=== PATIENT | male | born 1945 ===

== ENCOUNTER 2017-08-08 13:17 | Inpatient (IN) | payer MEDICARE, OTHER ==
[2017-08-08] MEDS ORDERED: Sodium Chloride 0.9% 1,000 ML IV ONE (14:07)
[2017-08-08] MEDS ORDERED: Sodium Chloride 0.9% 1,000 ML ONE (14:07)
--- NOTE | 2017-08-08 14:12 | C.PDOC ---
History Of Present Illness 72-year-old male, presents to the emergency department with complaints of syncopal episode. Patient states he was on his way to pain management for routine visit this morning, and developed light headedness while getting out of the car this morning. Patient states he walked into the building and sat down, after which he states he may have experiencing a syncopal episode. Patient did not have any evidence of seizure. He was sent to ED for evaluation of low blood pressure. States he feels light headed when he stands. Patient is on Morphine and Percocet at home which he is taking as prescribed. He notes loss of appetite for the past four months, but does not know why. No other complaints at this time. Time Seen by Provider: 08/08/17 14:02 Chief Complaint (Nursing): Dizziness/Lightheaded History Per: Patient History/Exam Limitations: no limitations Past Medical History Reviewed: Historical Data, Nursing Documentation, Vital Signs Vital Signs: Last Vital Signs Temp 97.8 F 08/08/17 13:50 Pulse 90 08/08/17 15:45 Resp 16 08/08/17 15:45 BP 94/60 L 08/08/17 15:45 Pulse Ox 99 08/08/17 17:11 - Medical History PMH: Back Problems, HTN Surgical History: CABG (2005) Family History: States: No Known Family Hx - Social History Hx Alcohol Use: No Hx Substance Use: No Review Of Systems Except As Marked, All Systems Reviewed And Found Negative. Constitutional: Negative for: Fever, Chills Cardiovascular: Negative for: Chest Pain, Palpitations Respiratory: Negative for: Shortness of Breath Gastrointestinal: Negative for: Nausea, Vomiting Musculoskeletal: Negative for: Back Pain Neurological: Positive for: Dizziness. Negative for: Weakness, Numbness, Headache Physical Exam - Physical Exam Appears: Well, Non-toxic, No Acute Distress Skin: Warm, Dry, No Diaphoretic, No Rash Head: Normacephalic Eye(s): bilateral: PERRL, EOMI Nose: Normal Oral Mucosa: Moist Lips: Normal Appearing Neck: Normal ROM, Supple Chest: Symmetrical Cardiovascular: Rhythm Regular, No Murmur Respiratory: Normal Breath Sounds, No Accessory Muscle Use Gastrointestinal/Abdominal: Soft, No Tenderness Extremity: Normal ROM, No Deformity, No Swelling Neurological/Psych: Oriented x3, Normal Speech, Other (No focal deficit) ED Course And Treatment - Laboratory Results Result Diagrams: 08/08/17 14:16 08/08/17 14:16 Lab Interpretation: Abnormal (BUN 29, Cr 1.8) ECG: Interpreted By Me ECG Rhythm: Sinus Rhythm (with left axis deviation) ECG Interpretation: No Acute Changes O2 Sat by Pulse Oximetry: 99 (RA) Pulse Ox Interpretation: Normal Progress Note: CT Head, EKG, Labs, and UA ordered and reviewed. Reevaluation Time: 17:10 Reassessment Condition: Unchanged (BP remains low with HR 90s after 1 liter normal saline. Patient is asymptomatic at rest.) - Physician Consult Information Time Consulting Physician Contacted: 17:10 Physician Contacted: Jonel Magana Outcome Of Conversation: Patient to be admitted for IV fluids and rehydration. Disposition - Disposition Disposition: HOSPITALIZED Disposition Time: 17:26 Condition: FAIR - POA Present On Arrival: None - Clinical Impression Clinical Impression: Dizziness, Hypotension, Dehydration - Scribe Statement The provider has reviewed the documentation as recorded by the Scribe (Maru Page) All medical record entries made by the Scribe were at my direction and personally dictated by me. I have reviewed the chart and agree that the record accurately reflects my personal performance of the history, physical exam, medical decision making, and the department course for this patient. I have also personally directed, reviewed, and agree with the discharge instructions and disposition.
[2017-08-08 14:20] LABS: BASO % 0.5 % (0.0-2.0); EOS # 0.1 K/uL (0.0-0.7); HEMOGLOBIN 13.8 g/dL (12.0-18.0); LYMPH # 1.1 K/uL (1.0-4.3); LYMPH % 12.2 % (20.0-40.0); MEAN CELL VOLUME 95.4 fL (80.0-94.0); MEAN CORPUSCULAR HEMOGLOBIN 33.2 pg (27.0-31.0); MEAN CORPUSCULAR HGB CONC 34.7 g/dL (33.0-37.0); MEAN PLATELET VOLUME 7.2 fL (7.2-11.7); MONO # 0.5 K/uL (0.0-0.8); MONO % 5.9 % (0.0-10.0); NEUT # 7.1 K/uL (1.8-7.0); NEUT % 80.4 % (50.0-75.0); RBC 4.15 Mil/uL (4.40-5.90); RED CELL DISTRIBUTION WIDTH 13.7 % (11.5-14.5); WHITE BLOOD COUNT 8.8 K/uL (4.8-10.8)
[2017-08-08 14:33] LABS: ALB/GLOB RATIO 1.3 (1.0-2.1); ALBUMIN 4.3 g/dL (3.5-5.0)
--- NOTE | 2017-08-08 15:30 | CT ---
PROCEDURE: CT HEAD WITHOUT CONTRAST. HISTORY: R/O Bleed COMPARISON: None available. TECHNIQUE: Axial computed tomography images were obtained through the head/brain without intravenous contrast. Radiation dose: Total exam DLP = 850.72 mGy-cm. This CT exam was performed using one or more of the following dose reduction techniques: Automated exposure control, adjustment of the mA and/or kV according to patient size, and/or use of iterative reconstruction technique. FINDINGS: HEMORRHAGE: No intracranial hemorrhage. BRAIN: No mass effect or edema. Intracranial atherosclerosis. Scattered periventricular and subcortical white matter hypodensities, which are nonspecific, but often seen with chronic microvascular ischemic disease. Please note that MRI with diffusion imaging is more sensitive in the detection of acute ischemic event. VENTRICLES: No hydrocephalus. CALVARIUM: Unremarkable. PARANASAL SINUSES: Mild mucosal thickening of the ethmoid air cells. The remainder of the limited visualized paranasal sinuses appear clear. MASTOID AIR CELLS: Unremarkable as visualized. No inflammatory changes. OTHER FINDINGS: None. IMPRESSION: No acute intracranial pathology identified. Findings as above.
[2017-08-08 16:27] LABS: URINE BACTERIA RARE (<OCC); URINE BILIRUBIN NEGATIVE (NEGATIVE); URINE BLOOD NEGATIVE (NEGATIVE); URINE CLARITY Hazy (Clear); URINE COLOR Yellow (YELLOW); URINE GLUCOSE (UA) NORMAL (Normal); URINE HYALINE CAST 0-2 /lpf (0-2); URINE LEUKOCYTE ESTERASE NEG Leu/uL (Negative); URINE NITRATE NEGATIVE (NEGATIVE); URINE PROTEIN NEGATIVE (NEGATIVE); URINE UROBILINOGEN NORMAL mg/dL (0.2-1.0)
[2017-08-08] MEDS: Sodium Chloride 0.9% 1,000 ML IV SCH (18:50)
[2017-08-08] MEDS: Morphine 15 mg SR Tab PO SCH (22:20)
--- NOTE | 2017-08-08 22:59 | CP.PCM.HP ---
History of Present Illness - History of Present Illness History of Present Illness: Chief Complaint : Dizziness/Lightheaded/ generalized weakness HPI: 72-year-old male with PMH significant for HTN, CAD, s/p CABG 6 years ago, HTn, Hyperlipidemia, back pain problems, presents to the emergency department with complaints of syncopal episode. Patient states he was on his way to pain management for routine visit this morning, and developed light headedness while getting out of the car this morning. Patient states he walked into the building and sat down, after which he states he may have experiencing a syncopal episode. Patient did not have any evidence of seizure. He was sent to ED for evaluation of low blood pressure. States he feels light headed when he stands. Patient is on Morphine and Percocet at home which he is taking as prescribed. He notes loss of appetite for the past four months, but does not know why. No other complaints at this time. He gets diaphoretic and dizzy but denies any chest pain Present on Admission - Present on Admission Any Indicators Present on Admission: Yes Review of Systems - Review of Systems Systems not reviewed;Unavailable: Acuity of Condition - Constitutional Constitutional: Fatigue, Lethargy, Malaise - EENT Eyes: absent: As Per HPI, Blind Spots, Blurred Vision, Change in Vision, Decreased Night Vision, Diplopia, Discharge, Dry Eye, Exophthalmos, Floaters, Irritation, Itchy Eyes, Loss of Peripheral Vision, Pain, Photophobia, Requires Corrective Lenses, Sees Flashes, Spots in Vision, Tunnel Vision, Other Visual Disturbances, Loss of Vision, Other Nose/Mouth/Throat: absent: As Per HPI, Epistaxis, Nasal Congestion, Nasal Discharge, Nasal Obstruction, Nasal Trauma, Nose Pain, Post Nasal Drip, Sinus Pain, Sinus Pressure, Bleeding Gums, Change in Voice, Dental Pain, Dry Mouth, Dysphagia, Halitosis, Hoarsness, Lip Swelling, Mouth Lesions, Mouth Pain, Odynophagia, Sore Throat, Throat Swelling, Tongue Swelling, Facial Pain, Neck Pain, Neck Mass, Other - Cardiovascular Cardiovascular: Diaphoresis, Palpitations, Rapid Heart Rate - Respiratory Respiratory: absent: As Per HPI, Cough, Dyspnea, Hemoptysis, Dyspnea on Exertion , Wheezing, Snoring, Stridor, Pain on Inspiration, Chest Congestion, Excessive Mucous Production, Change in Mucous Color, Pain with Coughing, Other - Gastrointestinal Gastrointestinal: absent: As Per HPI, Abdominal Pain, Belching, Bloating, Change in Bowel Habits, Change in Stool Character, Coffee Ground Emesis, Constipation, Cramping, Diarrhea, Dyspepsia, Dysphagia, Early Satiety, Excessive Flatus, Fecal Incontinence, Heartburn, Hematemesis, Hematochezia, Loose Stools, Melena, Nausea, Odynophagia, Temesmus, Vomiting, Other - Genitourinary Genitourinary: absent: As Per HPI, Change in Urinary Stream, Difficulty Urinating, Dysuria, Flank Pain, Hematuria, Pyuria, Nocturia, Urinary Incontinence, Urinary Frequency, Urinary Hesitance, Urinary Urgency, Voiding Freq/Small Amts, Freq UTI, Hx Renal/Bladder Calculi, Hx /Renal Surgery, Bladder Distension, Other - Musculoskeletal Musculoskeletal: Back Pain, Radiating Pain into Limb, Stiffness - Neurological Neurological: Abnormal Movements, Burning Sensations, Dizziness, Numbness, Syncope, Weakness Past Patient History - Past Medical History & Family History Past Medical History?: Yes - Past Social History Smoking Status: Unknown If Ever Smoked - CARDIAC Hx Hypertension: Yes - MUSCULOSKELETAL/RHEUMATOLOGICAL Hx Herniated Disk: Yes - PSYCHIATRIC Hx Substance Use: No - SURGICAL HISTORY Hx Coronary Artery Bypass Graft: Yes (2005) - ANESTHESIA Hx Anesthesia: Yes Meds Allergies/Adverse Reactions: Allergies Allergy/AdvReac Type Severity Reaction Status Date / Time No Known Allergies Allergy Unverified 08/08/17 13:54 Physical Exam - Constitutional Appears: No Acute Distress - Head Exam Head Exam: ATRAUMATIC, NORMAL INSPECTION, NORMOCEPHALIC - Eye Exam Eye Exam: EOMI, Normal appearance, PERRL Pupil Exam: NORMAL ACCOMODATION, PERRL - Respiratory Exam Respiratory Exam: Clear to Auscultation Bilateral, NORMAL BREATHING PATTERN - Cardiovascular Exam Cardiovascular Exam: REGULAR RHYTHM - GI/Abdominal Exam GI & Abdominal Exam: Normal Bowel Sounds, Soft. absent: Tenderness - Neurological Exam Neurological exam: Alert, CN II-XII Intact, Normal Gait, Oriented x3, Reflexes Normal - Psychiatric Exam Psychiatric exam: Normal Affect, Normal Mood Results - Vital Signs Recent Vital Signs: Last Vital Signs Temp 97.8 F 08/08/17 13:50 Pulse 86 08/08/17 19:53 Resp 12 08/08/17 19:53 BP 91/61 L 08/08/17 19:53 Pulse Ox 99 08/08/17 20:58 - Labs Result Diagrams: 08/08/17 14:16 08/08/17 14:16 Labs: Laboratory Results - last 24 hr 08/08/17 08/08/17 08/08/17 14:16 14:16 14:26 WBC 8.8 RBC 4.15 L Hgb 13.8 Hct 39.6 MCV 95.4 H MCH 33.2 H MCHC 34.7 RDW 13.7 Plt Count 388 MPV 7.2 Neut % (Auto) 80.4 H Lymph % (Auto) 12.2 L [place] % (Auto) 5.9 Eos % (Auto) 1.0 Baso % (Auto) 0.5 Neut # (Auto) 7.1 H Lymph # (Auto) 1.1 [place] # (Auto) 0.5 Eos # (Auto) 0.1 Baso # (Auto) 0.0 Sodium 138 Potassium 4.9 Chloride 102 Carbon Dioxide 25 Anion Gap 15 BUN 29 H Creatinine 1.8 H Est GFR ( Amer) 45 Est GFR (Non-Af Amer) 37 POC Glucose (mg/dL) 114 H Random Glucose 128 H Calcium 10.0 Total Bilirubin 0.6 AST 28 ALT 24 Alkaline Phosphatase 91 Total Protein 7.5 Albumin 4.3 Globulin 3.2 Albumin/Globulin Ratio 1.3 Urine Color Urine Clarity Urine pH Ur Specific [place] Urine Protein Urine Glucose (UA) Urine Ketones Urine Blood Urine Nitrate Urine Bilirubin Urine Urobilinogen Ur Leukocyte Esterase Urine WBC (Auto) Urine RBC (Auto) Ur Transition Epith Cell Urine Bacteria Hyaline Casts 08/08/17 16:17 WBC RBC Hgb Hct MCV MCH MCHC RDW Plt Count MPV Neut % (Auto) Lymph % (Auto) [place] % (Auto) Eos % (Auto) Baso % (Auto) Neut # (Auto) Lymph # (Auto) [place] # (Auto) Eos # (Auto) Baso # (Auto) Sodium Potassium Chloride Carbon Dioxide Anion Gap BUN Creatinine Est GFR ( Amer) Est GFR (Non-Af Amer) POC Glucose (mg/dL) Random Glucose Calcium Total Bilirubin AST ALT Alkaline Phosphatase Total Protein Albumin Globulin Albumin/Globulin Ratio Urine Color Yellow Urine Clarity Hazy Urine pH 6.0 Ur Specific [place] 1.013 Urine Protein Negative Urine Glucose (UA) Normal Urine Ketones Negative Urine Blood Negative Urine Nitrate Negative Urine Bilirubin Negative Urine Urobilinogen Normal Ur Leukocyte Esterase Neg Urine WBC (Auto) 1 Urine RBC (Auto) 1 Ur Transition Epith Cell < 1 Urine Bacteria Rare Hyaline Casts 0-2 Assessment & Plan (1) Dehydration Status: Acute (2) Dizziness Assessment and Plan: could be due to hypotension due to antihypertensive medications Status: Acute (3) Hypotension Status: Acute (4) Back pain Status: Acute
[2017-08-08 23:08] VITALS: RESP 20
[2017-08-09] MEDS: Sodium Chloride 0.9% 1,000 ML IV SCH ×2 (05:30→14:02)
--- NOTE | 2017-08-09 09:33 | RAD ---
Chest x-ray two views History: Pneumonia. Comparison: None available. Findings: Diffuse increased interstitial lung markings. Small nodular density at the right costophrenic angle may represent confluence of shadows with ribs and vessels. Tortuous ectatic aorta. Status post median sternotomy and CABG. Heart size within normal limits. Degenerative changes in the spine and shoulders. Impression: Diffuse increased interstitial lung markings. Small nodular density at the right costophrenic angle may represent confluence of shadows with ribs and vessels. Tortuous ectatic aorta. Status post median sternotomy and CABG.
[2017-08-09] MEDS ORDERED: Ergocalciferol 50,000 Intl Units Cap PO SCH (10:00)
[2017-08-09] MEDS ORDERED: Pneumococcal 23-Valent Vaccine IM ONE (10:00)
[2017-08-09] MEDS ORDERED: Influenza Vaccine 60 mcg/0.5 mL SYR (4YR UP) IM ONE (10:00)
[2017-08-09] MEDS: Morphine 15 mg SR Tab PO SCH ×2 (10:05→21:31)
[2017-08-09 11:48] LABS: BASO % 0.3 % (0.0-2.0); EOS # 0.1 K/uL (0.0-0.7); EOS % 1.2 % (0.0-4.0); LYMPH # 1.3 K/uL (1.0-4.3); LYMPH % 22.4 % (20.0-40.0); MEAN CELL VOLUME 95.5 fL (80.0-94.0); MEAN CORPUSCULAR HEMOGLOBIN 32.9 pg (27.0-31.0); MEAN CORPUSCULAR HGB CONC 34.4 g/dL (33.0-37.0); MEAN PLATELET VOLUME 7.1 fL (7.2-11.7); MONO # 0.5 K/uL (0.0-0.8); MONO % 8.4 % (0.0-10.0); NEUT # 3.8 K/uL (1.8-7.0); NEUT % 67.7 % (50.0-75.0); NRBC % 0.1 % (0.0-2.0); RBC 3.29 Mil/uL (4.40-5.90); RED CELL DISTRIBUTION WIDTH 13.7 % (11.5-14.5); WHITE BLOOD COUNT 5.7 K/uL (4.8-10.8)
[2017-08-09 11:52] LABS: HEMOGLOBIN 10.8 g/dL (12.0-18.0)
[2017-08-09 11:56] LABS: BLOOD UREA NITROGEN 23 mg/dL (9-20); CALCIUM 8.2 mg/dl (8.6-10.4); GFR AFRICAN-AMERICAN > 60; GFR NON-AFRICAN AMERICAN > 60
[2017-08-09] MEDS: Moxifloxacin IV 400mg/250ml NS 400 MG/250 ML BAG IVPB SCH (14:02)
[2017-08-09] MEDS ORDERED: Enoxaparin 40 mg Syringe SC SCH (15:00)
[2017-08-09] MEDS: Albuterol-Ipratrop 3 mg / 0.5 (3 ml) UD INH SCH (18:20)
--- NOTE | 2017-08-09 19:53 | CP.PCM.PN ---
Subjective - Date & Time of Evaluation Date of Evaluation: 08/09/17 Time of Evaluation: 18:00 - Subjective Subjective: pt seen and examined today, c/o coughing, congestion, B.P is low desoute Iv fluids, CXR shows infiltrate pt has atypical pnemonia, on avelox and Iv fluids Objective - Vital Signs/Intake and Output Vital Signs (last 24 hours): Temp Pulse Resp BP Pulse Ox 98.2 F 84 20 99/63 L 97 08/09/17 15:00 08/09/17 15:00 08/09/17 15:00 08/09/17 15:00 08/09/17 15:00 Intake and Output: 08/09/17 08/10/17 18:59 06:59 Intake Total 1350 Balance 1350 - Medications Medications: Current Medications Albuterol/Ipratropium (Duoneb 3 Mg/0.5 Mg (3 Ml) Ud) 3 ml INH RQ6 [facility] Carvedilol (Coreg) 3.125 mg PO Q12 [facility] Last Admin: 08/09/17 10:06 Dose: 3.125 mg Clopidogrel Bisulfate (Plavix) 75 mg PO DAILY [facility] Last Admin: 08/09/17 10:07 Dose: 75 mg Cyclobenzaprine HCl (Flexeril) 10 mg PO DAILY [facility] Last Admin: 08/09/17 10:07 Dose: 10 mg Ergocalciferol (Drisdol 50,000 Intl Units Cap) 1 cap PO QWK [facility] Last Admin: 08/09/17 10:05 Dose: 1 cap Famotidine (Pepcid) 20 mg PO DAILY [facility] Last Admin: 08/09/17 10:06 Dose: 20 mg Finasteride (Proscar) 5 mg PO DAILY [facility] Last Admin: 08/09/17 10:06 Dose: 5 mg Guaifenesin (Robitussin) 200 mg PO Q4H PRN PRN Reason: Cough and congestion Heparin Sodium (Porcine) (Heparin) 5,000 units SC Q12 [facility] Last Admin: 08/09/17 10:06 Dose: 5,000 units Sodium Chloride (Sodium Chloride 0.9%) 1,000 mls @ 100 mls/hr IV .Q10H [facility] Last Admin: 08/09/17 14:02 Dose: Not Given Moxifloxacin HCl (Avelox Iv 400mg/250ml Ns) 400 mg in 250 mls @ 167 mls/hr IVPB Q24H [facility] Last Admin: 08/09/17 14:02 Dose: 167 mls/hr Morphine Sulfate (Morphine Extended Release Tab) 15 mg PO Q12 [facility] Last Admin: 08/09/17 10:05 Dose: 15 mg Rosuvastatin Calcium (Crestor) 20 mg PO HS [facility] Last Admin: 08/08/17 22:20 Dose: 20 mg - Labs Labs: 08/09/17 11:31 08/09/17 11:31 - Constitutional Appears: No Acute Distress - Head Exam Head Exam: ATRAUMATIC, NORMAL INSPECTION, NORMOCEPHALIC - Eye Exam Eye Exam: EOMI, Normal appearance, PERRL Pupil Exam: NORMAL ACCOMODATION, PERRL - Respiratory Exam Respiratory Exam: Clear to Ausculation Bilateral, NORMAL BREATHING PATTERN - Cardiovascular Exam Cardiovascular Exam: REGULAR RHYTHM, +S1, +S2. absent: Murmur - GI/Abdominal Exam GI & Abdominal Exam: Soft, Normal Bowel Sounds. absent: Tenderness - Extremities Exam Extremities Exam: Full ROM, Normal Capillary Refill, Normal Inspection. absent : Joint Swelling, Pedal Edema - Neurological Exam Neurological Exam: Alert, Awake, CN II-XII Intact, Normal Gait, Oriented x3 Assessment and Plan (1) Dehydration Status: Acute (2) Dizziness Status: Acute (3) Hypotension Status: Acute (4) Back pain Status: Acute
[2017-08-10] MEDS: Sodium Chloride 0.9% 1,000 ML IV SCH ×3 (00:15→10:15)
[2017-08-10] MEDS: Albuterol-Ipratrop 3 mg / 0.5 (3 ml) UD INH SCH ×4 (03:01→19:15)
[2017-08-10] MEDS: guaiFENesin 200 mg/10 ml Syrup UD PO PRN (09:12)
[2017-08-10] MEDS: Morphine 15 mg SR Tab PO SCH ×2 (09:15→21:38)
[2017-08-10] MEDS ORDERED: Pantoprazole 40 mg EC Tab PO STA (09:38)
[2017-08-10] MEDS ORDERED: Pantoprazole 40 mg EC Tab PO ONE (11:30)
[2017-08-10 11:42] LABS: HEMOGLOBIN 10.7 g/dL (12.0-18.0); MEAN CELL VOLUME 95.1 fL (80.0-94.0); MEAN CORPUSCULAR HEMOGLOBIN 33.2 pg (27.0-31.0); MEAN CORPUSCULAR HGB CONC 34.9 g/dL (33.0-37.0); MEAN PLATELET VOLUME 7.4 fL (7.2-11.7); RBC 3.24 Mil/uL (4.40-5.90); RED CELL DISTRIBUTION WIDTH 13.7 % (11.5-14.5); WHITE BLOOD COUNT 5.7 K/uL (4.8-10.8)
[2017-08-10 11:59] LABS: IRON 27 ug/dL (49-181)
[2017-08-10 12:01] LABS: BLOOD UREA NITROGEN 18 mg/dL (9-20); CALCIUM 8.8 mg/dl (8.6-10.4); GFR AFRICAN-AMERICAN > 60; GFR NON-AFRICAN AMERICAN 54
[2017-08-10 12:09] LABS: % IRON SATURATION 10 (20-55); TOTAL IRON BINDING CAPACITY 272 ug/dL (250-450)
[2017-08-10] MEDS: Moxifloxacin IV 400mg/250ml NS 400 MG/250 ML BAG IVPB SCH (13:00)
--- NOTE | 2017-08-10 13:22 | CARD ---
APPROVED REPORT EKG Measurement Heart [id number] <Conclusion> Normal sinus rhythm Left axis deviation Abnormal ECG
--- NOTE | 2017-08-10 16:02 | CP.PCM.CON ---
History of Present Illness - History of Present Illness History of Present Illness: Reason for consultation: history of COPD and cough 72-year-old male with history off COPD, coronary artery disease status post CABG presented to emergency department with syncopal episode. Patient also complaining off slight cough and on and off shortness of breath. Patient states that he uses Advair and nebulizer treatment. Patient has long history of smoking and quit many years ago. Patient states dizziness/lightheadedness is better now Review of Systems - Review of Systems All systems: reviewed and no additional remarkable complaints except (shortness of breath and cough) Past Patient History - Past Medical History & Family History Past Medical History?: Yes - Past Social History Smoking Status: Unknown If Ever Smoked - CARDIAC Hx Hypertension: Yes - MUSCULOSKELETAL/RHEUMATOLOGICAL Hx Herniated Disk: Yes - PSYCHIATRIC Hx Substance Use: No - SURGICAL HISTORY Hx Coronary Artery Bypass Graft: Yes (2005) - ANESTHESIA Hx Anesthesia: Yes Meds Allergies/Adverse Reactions: Allergies Allergy/AdvReac Type Severity Reaction Status Date / Time No Known Allergies Allergy Unverified 08/08/17 13:54 - Medications Medications: Current Medications Albuterol/Ipratropium (Duoneb 3 Mg/0.5 Mg (3 Ml) Ud) 3 ml INH RQ6 [facility] Last Admin: 08/10/17 13:52 Dose: 3 ml Carvedilol (Coreg) 3.125 mg PO Q12 [facility] Last Admin: 08/10/17 10:00 Dose: Not Given Clopidogrel Bisulfate (Plavix) 75 mg PO DAILY [facility] Last Admin: 08/10/17 09:12 Dose: 75 mg Cyclobenzaprine HCl (Flexeril) 10 mg PO DAILY [facility] Last Admin: 08/10/17 09:13 Dose: 10 mg Ergocalciferol (Drisdol 50,000 Intl Units Cap) 1 cap PO QWK [facility] Last Admin: 08/09/17 10:05 Dose: 1 cap Famotidine (Pepcid) 20 mg PO BID [facility] Last Admin: 08/10/17 10:20 Dose: 20 mg Finasteride (Proscar) 5 mg PO DAILY [facility] Last Admin: 08/10/17 09:11 Dose: 5 mg Guaifenesin (Robitussin) 200 mg PO Q4H PRN PRN Reason: Cough and congestion Last Admin: 08/10/17 09:12 Dose: 200 mg Heparin Sodium (Porcine) (Heparin) 5,000 units SC Q12 [facility] Last Admin: 08/10/17 09:13 Dose: 5,000 units Sodium Chloride (Sodium Chloride 0.9%) 1,000 mls @ 100 mls/hr IV .Q10H [facility] Last Admin: 08/10/17 10:15 Dose: Not Given Moxifloxacin HCl (Avelox Iv 400mg/250ml Ns) 400 mg in 250 mls @ 167 mls/hr IVPB Q24H [facility] Last Admin: 08/10/17 13:00 Dose: 167 mls/hr Morphine Sulfate (Morphine Extended Release Tab) 15 mg PO Q12 [facility] Last Admin: 08/10/17 09:15 Dose: 15 mg Rosuvastatin Calcium (Crestor) 20 mg PO HS [facility] Last Admin: 08/09/17 21:28 Dose: 20 mg Physical Exam - Head Exam Head Exam: ATRAUMATIC, NORMOCEPHALIC - ENT Exam ENT Exam: Mucous Membranes Moist - Neck Exam Neck exam: Positive for: Normal Inspection - Respiratory Exam Respiratory Exam: Rhonchi, Wheezes - Cardiovascular Exam Cardiovascular Exam: REGULAR RHYTHM - GI/Abdominal Exam GI & Abdominal Exam: Normal Bowel Sounds, Soft Results - Vital Signs Recent Vital Signs: Last Vital Signs Temp 98.2 F 08/09/17 15:00 Pulse 84 08/09/17 15:00 Resp 20 08/09/17 15:00 BP 99/61 L 08/09/17 21:35 Pulse Ox 97 08/09/17 15:00 - Labs Result Diagrams: 08/10/17 11:30 08/10/17 11:30 Labs: Laboratory Results - last 24 hr 08/10/17 08/10/17 08/10/17 11:30 11:30 11:30 WBC 5.7 RBC 3.24 L Hgb 10.7 L Hct 30.8 L MCV 95.1 H MCH 33.2 H MCHC 34.9 RDW 13.7 Plt Count 274 MPV 7.4 Sodium 138 Potassium 4.7 Chloride 107 Carbon Dioxide 25 Anion Gap 11 BUN 18 Creatinine 1.3 Est GFR ( Amer) > 60 Est GFR (Non-Af Amer) 54 Random Glucose 91 Calcium 8.8 Iron 27 L TIBC 272 % Saturation 10 L Assessment & Plan (1) COPD (chronic obstructive pulmonary disease) Status: Acute Comment: continue nebulizer treatment. Add Advair. Dizziness workup (2) Dizziness Status: Acute
[2017-08-10] MEDS: Fluticasone-Salmeterol 250-50mcg Diskus INH SCH (19:15)
[2017-08-10] MEDS ORDERED: MethylPREDNISolone 40 mg Vial IVP STA ×2 (19:44→20:53)
--- NOTE | 2017-08-10 23:27 | CP.PCM.PN ---
Subjective - Date & Time of Evaluation Date of Evaluation: 08/10/17 Time of Evaluation: 18:00 - Subjective Subjective: Pt seen and examined at bedside, pt blood pressure is more stable, he is coughing and wheezing Objective - Vital Signs/Intake and Output Vital Signs (last 24 hours): Temp Pulse Resp BP Pulse Ox 98.7 F 84 20 115/71 96 08/10/17 16:43 08/10/17 16:43 08/10/17 16:43 08/10/17 16:43 08/10/17 17:07 Intake and Output: 08/10/17 08/11/17 18:59 06:59 Intake Total 1000 Output Total 650 Balance 350 - Medications Medications: Current Medications Albuterol/Ipratropium (Duoneb 3 Mg/0.5 Mg (3 Ml) Ud) 3 ml INH RQ6 [facility] Last Admin: 08/10/17 19:15 Dose: 3 ml Carvedilol (Coreg) 3.125 mg PO Q12 [facility] Last Admin: 08/10/17 21:10 Dose: 3.125 mg Clopidogrel Bisulfate (Plavix) 75 mg PO DAILY [facility] Last Admin: 08/10/17 09:12 Dose: 75 mg Cyclobenzaprine HCl (Flexeril) 10 mg PO DAILY [facility] Last Admin: 08/10/17 09:13 Dose: 10 mg Ergocalciferol (Drisdol 50,000 Intl Units Cap) 1 cap PO QWK [facility] Last Admin: 08/09/17 10:05 Dose: 1 cap Famotidine (Pepcid) 20 mg PO BID [facility] Last Admin: 08/10/17 18:23 Dose: 20 mg Finasteride (Proscar) 5 mg PO DAILY [facility] Last Admin: 08/10/17 09:11 Dose: 5 mg Guaifenesin (Robitussin) 200 mg PO Q4H PRN PRN Reason: Cough and congestion Last Admin: 08/10/17 09:12 Dose: 200 mg Heparin Sodium (Porcine) (Heparin) 5,000 units SC Q12 [facility] Last Admin: 08/10/17 09:13 Dose: 5,000 units Moxifloxacin HCl (Avelox Iv 400mg/250ml Ns) 400 mg in 250 mls @ 167 mls/hr IVPB Q24H [facility] Last Admin: 08/10/17 13:00 Dose: 167 mls/hr Morphine Sulfate (Morphine Extended Release Tab) 15 mg PO Q12 [facility] Last Admin: 08/10/17 21:38 Dose: 15 mg Rosuvastatin Calcium (Crestor) 20 mg PO HS [facility] Last Admin: 08/10/17 21:09 Dose: 20 mg Fluticasone/Salmeterol (Advair Diskus 250/50) 1 puff INH RQ12 [facility] Last Admin: 08/10/17 19:15 Dose: Not Given - Labs Labs: 08/10/17 11:30 08/10/17 11:30 - Constitutional Appears: No Acute Distress - Head Exam Head Exam: ATRAUMATIC, NORMAL INSPECTION, NORMOCEPHALIC - Eye Exam Eye Exam: EOMI, Normal appearance, PERRL Pupil Exam: NORMAL ACCOMODATION, PERRL - Respiratory Exam Respiratory Exam: Decreased Breath Sounds, Rales, Rhonchi - Cardiovascular Exam Cardiovascular Exam: REGULAR RHYTHM, +S1, +S2. absent: Murmur - GI/Abdominal Exam GI & Abdominal Exam: Soft, Normal Bowel Sounds. absent: Tenderness Assessment and Plan (1) Dehydration Status: Acute (2) Dizziness Status: Acute (3) Hypotension Status: Acute (4) Back pain Status: Acute
[2017-08-11] MEDS: Albuterol-Ipratrop 3 mg / 0.5 (3 ml) UD INH SCH ×3 (02:59→13:31)
[2017-08-11 08:00] LABS: MEAN CELL VOLUME 95.6 fL (80.0-94.0); MEAN CORPUSCULAR HEMOGLOBIN 33.3 pg (27.0-31.0); MEAN CORPUSCULAR HGB CONC 34.8 g/dL (33.0-37.0); MEAN PLATELET VOLUME 7.4 fL (7.2-11.7); RBC 3.61 Mil/uL (4.40-5.90); RED CELL DISTRIBUTION WIDTH 13.4 % (11.5-14.5); WHITE BLOOD COUNT 6.4 K/uL (4.8-10.8)
[2017-08-11 08:10] LABS: BLOOD UREA NITROGEN 16 mg/dL (9-20); CALCIUM 8.8 mg/dl (8.6-10.4); GFR AFRICAN-AMERICAN > 60; GFR NON-AFRICAN AMERICAN 60
[2017-08-11] MEDS: Fluticasone-Salmeterol 250-50mcg Diskus INH SCH (08:59)
[2017-08-11] MEDS: guaiFENesin 200 mg/10 ml Syrup UD PO PRN (09:16)
[2017-08-11] MEDS: Morphine 15 mg SR Tab PO SCH (09:19)
[2017-08-11 09:25] VITALS: BP 104/67; PULSE 99; TEMP 98.2; O2SAT 95
--- NOTE | 2017-08-11 13:33 | CP.PCM.PN ---
Subjective - Date & Time of Evaluation Date of Evaluation: 08/11/17 Time of Evaluation: 09:20 - Subjective Subjective: patient seen and examined Cough and wheezing much improved Afebrile Being discharged home Follow up in the office Continue Advair and nebulizer treatment Pulmonary function test Objective - Vital Signs/Intake and Output Vital Signs (last 24 hours): Temp Pulse Resp BP Pulse Ox 98.2 F 99 H 20 104/67 95 08/11/17 09:24 08/11/17 09:24 08/11/17 09:24 08/11/17 09:24 08/11/17 09:24 Intake and Output: 08/11/17 08/11/17 06:59 18:59 Intake Total 120 Balance 120 - Medications Medications: Current Medications Albuterol/Ipratropium (Duoneb 3 Mg/0.5 Mg (3 Ml) Ud) 3 ml INH RQ6 [facility] Last Admin: 08/11/17 13:31 Dose: 3 ml Carvedilol (Coreg) 3.125 mg PO Q12 [facility] Last Admin: 08/11/17 09:17 Dose: 3.125 mg Clopidogrel Bisulfate (Plavix) 75 mg PO DAILY [facility] Last Admin: 08/11/17 09:20 Dose: 75 mg Cyclobenzaprine HCl (Flexeril) 10 mg PO DAILY [facility] Last Admin: 08/11/17 09:20 Dose: 10 mg Ergocalciferol (Drisdol 50,000 Intl Units Cap) 1 cap PO QWK [facility] Last Admin: 08/09/17 10:05 Dose: 1 cap Famotidine (Pepcid) 20 mg PO BID [facility] Last Admin: 08/11/17 09:17 Dose: 20 mg Finasteride (Proscar) 5 mg PO DAILY [facility] Last Admin: 08/11/17 09:21 Dose: 5 mg Guaifenesin (Robitussin) 200 mg PO Q4H PRN PRN Reason: Cough and congestion Last Admin: 08/11/17 09:16 Dose: 200 mg Heparin Sodium (Porcine) (Heparin) 5,000 units SC Q12 [facility] Last Admin: 08/10/17 09:13 Dose: 5,000 units Moxifloxacin HCl (Avelox Iv 400mg/250ml Ns) 400 mg in 250 mls @ 167 mls/hr IVPB Q24H [facility] Last Admin: 08/10/17 13:00 Dose: 167 mls/hr Morphine Sulfate (Morphine Extended Release Tab) 15 mg PO Q12 [facility] Last Admin: 08/11/17 09:19 Dose: 15 mg Rosuvastatin Calcium (Crestor) 20 mg PO HS [facility] Last Admin: 08/10/17 21:09 Dose: 20 mg Fluticasone/Salmeterol (Advair Diskus 250/50) 1 puff INH RQ12 [facility] Last Admin: 08/11/17 08:59 Dose: 1 puff - Labs Labs: 08/11/17 07:34 08/11/17 07:34 Assessment and Plan (1) COPD (chronic obstructive pulmonary disease) Status: Acute (2) Dizziness Status: Acute
--- NOTE | 2017-08-11 16:08 | CP.PCM.PN ---
Subjective - Date & Time of Evaluation Date of Evaluation: 08/11/17 Time of Evaluation: 16:08 - Subjective Subjective: Alert, awake, no sob or distress. Objective - Vital Signs/Intake and Output Vital Signs (last 24 hours): Temp Pulse Resp BP Pulse Ox 98.2 F 99 H 20 104/67 95 08/11/17 09:24 08/11/17 09:24 08/11/17 09:24 08/11/17 09:24 08/11/17 09:24 Intake and Output: 08/11/17 08/11/17 06:59 18:59 Intake Total 120 Balance 120 - Medications Medications: Current Medications Albuterol/Ipratropium (Duoneb 3 Mg/0.5 Mg (3 Ml) Ud) 3 ml INH RQ6 [facility] Last Admin: 08/11/17 13:31 Dose: 3 ml Carvedilol (Coreg) 3.125 mg PO Q12 [facility] Last Admin: 08/11/17 09:17 Dose: 3.125 mg Clopidogrel Bisulfate (Plavix) 75 mg PO DAILY [facility] Last Admin: 08/11/17 09:20 Dose: 75 mg Cyclobenzaprine HCl (Flexeril) 10 mg PO DAILY [facility] Last Admin: 08/11/17 09:20 Dose: 10 mg Ergocalciferol (Drisdol 50,000 Intl Units Cap) 1 cap PO QWK [facility] Last Admin: 08/09/17 10:05 Dose: 1 cap Famotidine (Pepcid) 20 mg PO BID [facility] Last Admin: 08/11/17 09:17 Dose: 20 mg Finasteride (Proscar) 5 mg PO DAILY [facility] Last Admin: 08/11/17 09:21 Dose: 5 mg Guaifenesin (Robitussin) 200 mg PO Q4H PRN PRN Reason: Cough and congestion Last Admin: 08/11/17 09:16 Dose: 200 mg Heparin Sodium (Porcine) (Heparin) 5,000 units SC Q12 [facility] Last Admin: 08/10/17 09:13 Dose: 5,000 units Moxifloxacin HCl (Avelox Iv 400mg/250ml Ns) 400 mg in 250 mls @ 167 mls/hr IVPB Q24H [facility] Last Admin: 08/10/17 13:00 Dose: 167 mls/hr Morphine Sulfate (Morphine Extended Release Tab) 15 mg PO Q12 [facility] Last Admin: 08/11/17 09:19 Dose: 15 mg Rosuvastatin Calcium (Crestor) 20 mg PO HS [facility] Last Admin: 08/10/17 21:09 Dose: 20 mg Fluticasone/Salmeterol (Advair Diskus 250/50) 1 puff INH RQ12 [facility] Last Admin: 08/11/17 08:59 Dose: 1 puff - Labs Labs: 08/11/17 07:34 08/11/17 07:34 Assessment and Plan - Assessment and Plan (Free Text) Assessment: Patient admitted with syncopal episode, seen and examined. Alert and orientx3, denies sob or chest pains. No dizziness now. Discussed with DR Magana, plan to discharge home today. Will continue with avelox and prednisone and diovan is discontinued. Advised to follow up in the office in 1 week.
--- NOTE | 2017-08-11 23:08 | CP.PCM.DIS ---
Provider - Provider Date of Admission: 08/09/17 15:23 Attending physician: Jonel Magana MD Diagnosis - Discharge Diagnosis (1) Dehydration Status: Acute (2) Dizziness Status: Acute (3) Hypotension Status: Acute (4) Back pain Status: Acute Hospital Course - Lab Results Lab Results: Most Recent Lab Values WBC 6.4 K/uL (4.8-10.8) 08/11/17 07:34 RBC 3.61 Mil/uL (4.40-5.90) L 08/11/17 07:34 Hgb 12.0 g/dL (12.0-18.0) 08/11/17 07:34 Hct 34.5 % (35.0-51.0) L 08/11/17 07:34 MCV 95.6 fL (80.0-94.0) H 08/11/17 07:34 MCH 33.3 pg (27.0-31.0) H 08/11/17 07:34 MCHC 34.8 g/dL (33.0-37.0) 08/11/17 07:34 RDW 13.4 % (11.5-14.5) 08/11/17 07:34 Plt Count 308 K/uL (130-400) 08/11/17 07:34 MPV 7.4 fL (7.2-11.7) 08/11/17 07:34 Neut % (Auto) 67.7 % (50.0-75.0) 08/09/17 11:31 Lymph % (Auto) 22.4 % (20.0-40.0) 08/09/17 11:31 [place] % (Auto) 8.4 % (0.0-10.0) 08/09/17 11:31 Eos % (Auto) 1.2 % (0.0-4.0) 08/09/17 11:31 Baso % (Auto) 0.3 % (0.0-2.0) 08/09/17 11:31 Neut # (Auto) 3.8 K/uL (1.8-7.0) 08/09/17 11:31 Lymph # (Auto) 1.3 K/uL (1.0-4.3) 08/09/17 11:31 [place] # (Auto) 0.5 K/uL (0.0-0.8) 08/09/17 11:31 Eos # (Auto) 0.1 K/uL (0.0-0.7) 08/09/17 11:31 Baso # (Auto) 0.0 K/uL (0.0-0.2) 08/09/17 11:31 Sodium 138 mmol/L (132-148) 08/11/17 07:34 Potassium 5.1 mmol/L (3.6-5.2) 08/11/17 07:34 Chloride 109 mmol/L (98-107) H 08/11/17 07:34 Carbon Dioxide 21 mmol/L (22-30) L 08/11/17 07:34 Anion Gap 13 (10-20) 08/11/17 07:34 BUN 16 mg/dL (9-20) 08/11/17 07:34 Creatinine 1.2 mg/dL (0.8-1.5) 08/11/17 07:34 Est GFR ( Amer) > 60 08/11/17 07:34 Est GFR (Non-Af Amer) 60 08/11/17 07:34 POC Glucose (mg/dL) 114 mg/dL (65-110) H 08/08/17 14:26 Random Glucose 137 mg/dL (75-110) H 08/11/17 07:34 Calcium 8.8 mg/dl (8.6-10.4) 08/11/17 07:34 Iron 27 ug/dL (49-181) L 08/10/17 11:30 TIBC 272 ug/dL (250-450) 08/10/17 11:30 % Saturation 10 (20-55) L 08/10/17 11:30 Total Bilirubin 0.6 mg/dL (0.2-1.3) 08/08/17 14:16 AST 28 U/L (17-59) 08/08/17 14:16 ALT 24 U/L (21-72) 08/08/17 14:16 Alkaline Phosphatase 91 U/L (38-126) 08/08/17 14:16 Total Protein 7.5 g/dL (6.3-8.3) 08/08/17 14:16 Albumin 4.3 g/dL (3.5-5.0) 08/08/17 14:16 Globulin 3.2 gm/dL (2.2-3.9) 08/08/17 14:16 Albumin/Globulin Ratio 1.3 (1.0-2.1) 08/08/17 14:16 Urine Color Yellow (YELLOW) 08/08/17 16:17 Urine Clarity Hazy (Clear) 08/08/17 16:17 Urine pH 6.0 (5.0-8.0) 08/08/17 16:17 Ur Specific Mobile 1.013 (1.003-1.030) 08/08/17 16:17 Urine Protein Negative mg/dL (NEGATIVE) 08/08/17 16:17 Urine Glucose (UA) Normal mg/dL (Normal) 08/08/17 16:17 Urine Ketones Negative mg/dL (NEGATIVE) 08/08/17 16:17 Urine Blood Negative (NEGATIVE) 08/08/17 16:17 Urine Nitrate Negative (NEGATIVE) 08/08/17 16:17 Urine Bilirubin Negative (NEGATIVE) 08/08/17 16:17 Urine Urobilinogen Normal mg/dL (0.2-1.0) 08/08/17 16:17 Ur Leukocyte Esterase Neg Fabiana/uL (Negative) 08/08/17 16:17 Urine WBC (Auto) 1 /hpf (0-5) 08/08/17 16:17 Urine RBC (Auto) 1 /hpf (0-3) 08/08/17 16:17 Ur Transition Epith Cell < 1 /hpf (0-3) 08/08/17 16:17 Urine Bacteria Rare (<OCC) 08/08/17 16:17 Hyaline Casts 0-2 /lpf (0-2) 08/08/17 16:17 Discharge Exam - Head Exam Head Exam: ATRAUMATIC, NORMAL INSPECTION, NORMOCEPHALIC Discharge Plan - Discharge Medications Prescriptions: Moxifloxacin [Avelox] 400 mg PO DAILY #3 tab predniSONE [Prednisone] 10 mg PO DAILY #10 tab guaiFENesin [Robitussin] 200 mg PO Q4H PRN #200 ml PRN Reason: Cough And Congestion - Follow Up Plan Condition: FAIR Disposition: HOME/ ROUTINE Instructions: Back Pain (GEN)
== END 2017-08-11 16:28 | disposition home or self-care (01) | DRG 640 ==
LOC: C.ER 13:17 → C.9E 17:24 → C.3T 19:45 → OBSVTOIN 08-09 15:23
PROVIDERS: ADMIT Internal Medicine; ATTEND Internal Medicine
DX: E86.0 Dehydration (principal); J18.9 Pneumonia, unspecified organism; I95.9 Hypotension, unspecified; J44.9 Chronic obstructive pulmonary disease, unspecified; I25.10 Atherosclerotic heart disease of native coronary artery without angina pectoris; I10 Essential (primary) hypertension; E78.5 Hyperlipidemia, unspecified; Z95.1 Presence of aortocoronary bypass graft; M54.9 Dorsalgia, unspecified; Z87.891 Personal history of nicotine dependence

== ENCOUNTER 2018-07-31 11:52 | Outpatient (CLI) | payer MEDICARE, OTHER | END 2018-07-31 11:53 | disposition home or self-care (01) | LOC: C.RADH 11:52 ==